=== PATIENT | female | born 1995 | race Hispanic/Latino ===

== ENCOUNTER 2017-06-04 08:00 | Outpatient (CLI) | payer OTHER | END 2017-06-04 08:01 | disposition home or self-care (01) | LOC: BICULT 08:00 | PROVIDERS: ATTEND Family Medicine | DX: N63.10 Unspecified lump in the right breast, unspecified quadrant (principal) ==

== ENCOUNTER 2017-10-30 14:38 | Outpatient (CLI) | payer OTHER, SELFPAY | END 2017-10-30 14:39 | disposition home or self-care (01) | LOC: BICRAD 14:38 | PROVIDERS: ATTEND Family Medicine | DX: R06.2 Wheezing (principal); M54.6 Pain in thoracic spine | CPT/HCPCS: 71046 ==